=== PATIENT | female | born 1975 | race African-American/Black ===

== ENCOUNTER 2023-07-02 09:47 | Observation (INO) ==
--- NOTE | 2023-07-02 10:20 | Emergency Department Note ---
History of Present Illness General Chief complaint: Referred by Doctor Stated complaint: left foot infection, meds not helping Time Seen by Provider: 07/02/23 10:01 History of Present Illness Maximum Pain Intensity: 6 This is a 47-year-old female that presents to the emergency department via private vehicle with complaints of "left foot infection". Patient has for the past 1.5 months she has been experiencing left foot pain. Patient has a history of what is believed to be underlying psoriasis which she notes was diagnosed via biopsy. She notes an ongoing integument change to the left medial foot in different areas of the lower extremities. She notes that the areas become itchy at times and she will scratch the areas and they will become open wounds. She states that she has noted progressive pain and edema of the left foot and left lower extremity. She states that she was seen here in the emergency department on the of this month, just a few days ago and was prescribed cephalexin as well as Bactrim. Patient states that despite taking these medications as prescribed her symptoms continue to worsen. The patient denies any history of similar. The patient does note associated chills. No fever. Patient states that she reached out to her PCP today and was recommended to go to the emergency department for further evaluation and management. Current pain 6/10. Per review of the EMR the patient did have x-rays performed on 06/29/2023 as well as a venous Doppler study of the left lower extremity. Left foot at that time was essentially negative for acute findings. No evidence for acute osteomyelitis. Doppler study of the left lower extremity was essentially negative. There was a prominent left inguinal lymph node noted. Home Medications Medication Instructions Recorded Confirmed Type cephalexin 500 mg capsule 500 mg PO TID 10 days #30 caps 06/29/23 07/02/23 Rx cyanocobalamin (vitamin B-12) 1,000 mcg PO DAILY 06/29/23 07/02/23 History 1,000 mcg tablet (Vitamin B-12) dextroamphetamine-amphetamine 10 10 mg PO DAILY PRN HIGH STRESS DAYS 06/29/23 07/02/23 History mg tablet (Adderall) sulfamethoxazole 800 1 tab PO BID 10 days #20 tabs 06/29/23 07/02/23 Rx mg-trimethoprim 160 mg tablet (Bactrim DS) Allergies Allergy/AdvReac Type Severity Reaction Status Date / Time Penicillins Allergy Intermediate Hives Verified 07/02/23 11:59 Past Med/Surg History Medical History (Updated 07/02/23 @ 17:03 by Alberto Llanos PA-C) Iron deficiency anemia Surgical History No significant past surgical history Social History Smoking Status: Never smoker Feels Safe at Home: Yes Review of Systems A total of 10 systems reviewed and were otherwise negative Physical Exam Vital Signs Vital Signs - 24 hr 07/02/23 09:51 07/02/23 12:18 Temperature 37.0 C Temperature Source Oral Pulse Rate 89 Pulse Rate [Right Finger] 82 Pulse Rhythm Regular Pulse Strength Normal Respiratory Rate 20 18 Respiratory Effort / Characteristics Non-Labored Spontaneous Non-Labored Respiratory Depth Normal Normal Respiratory Pattern Regular Blood Pressure [Right Arm] 147/85 H Blood Pressure Mean [Right Arm] 105 Blood Pressure Position Sitting Blood Pressure Position [Right Arm] Lying Pulse Oximetry 97 93 Oxygen Delivery Method Room Air Room Air Sepsis Recent Fever Within 48 Hours No Sepsis New/Unexplained Change in Mental Status No Sepsis Action Taken by Nursing No Action Required VITAL SIGNS - Vital signs and nursing notes were reviewed. Stable and afebrile. GENERAL - 47-year-old female appearing her stated age who is in no acute distress. Communicates well with provider and answers questions appropriately. SKIN -several chronic, thickened integument with dark discoloration overlying the left medial foot. There is erythema tracking throughout the left foot and into the tip/fib region. There is diffuse circumferential edema throughout the left foot and left tib/fib area. HEAD - NC/AT. EYES - Sclera anicteric. EARS - No deformities of external structures noted on gross examination bilaterally. NOSE - Midline and without cyanosis. No epistaxis or purulent drainage noted. MOUTH/OROPHARYNX - Without perioral cyanosis. NECK - No nuchal rigidity. LUNGS - CTA CARDIAC - RRR EXTREMITIES - No clubbing or peripheral cyanosis. No crepitus or fluctuance left lower extremity appropriately warm and well-perfused. No deficits. Skin as above. NEUROLOGIC - Cranial nerves grossly intact. PSYCH - A&O. Pt is very pleasant and interacts well with examiner. Course Administered Medications Discontinued Medications Cefepime HCl 2,000 mg/ Syringe 20 mls @ 5 mls/min IV NOW STA; Protocol Stop: 07/02/23 12:31 Last Admin: 07/02/23 12:47 Dose: 5 mls/min Documented By: MIRANDA Vancomycin HCl 1,750 mg/ (Sodium Chloride) 535 mls @ 200 mls/hr IV NOW ONE Stop: 07/02/23 16:10 Last Admin: 07/02/23 14:40 Dose: Not Given Documented By: MIRANDA Ketorolac Tromethamine (Ketorolac Tromethamine 15 Mg/Ml Vial) 10 mg IV NOW ONE Stop: 07/02/23 12:08 Last Admin: 07/02/23 12:19 Dose: 10 mg Documented By: MIRANDA Medical Decision Making Laboratory Data 07/02/23 11:32 07/02/23 11:32 Lab Results 07/02/23 Range/Units 11:32 WBC 11.81 H (4.8-10.8) K/ul RBC 3.71 L (4.20-5.40) M/uL Hgb 8.1 L (12.0-16.0) g/dl Hct 26.8 L (37.0-47.0) % MCV 72.2 L (80.0-100.0) fL MCH 21.8 L (25.0-34.0) pg MCHC 30.2 L (32.0-36.0) g/dL RDW Std Deviation 47.4 H (36.4-46.3) fL RDW Coeff of Clarence 18.4 H (11.5-14.5) % Plt Count 646 H (130-400) K/uL MPV 8.7 L (9.4-12.4) fL Immature Gran % (Auto) 0.3 % Neut % (Auto) 69.2 % Lymph % (Auto) 23.5 % Mitchell % (Auto) 4.3 % Eos % (Auto) 2.4 % Baso % (Auto) 0.3 % Neut # (Auto) 8.17 H (1.40-6.50) K/uL Lymph # (Auto) 2.77 (1.20-3.40) K/uL Mitchell # (Auto) 0.51 (0.11-0.59) K/uL Eos # (Auto) 0.28 (0.00-0.50) K/uL Baso # (Auto) 0.04 (0.00-0.20) K/uL Immature Gran # (Auto) 0.04 (0.01-0.20) K/uL Absolute Nucleated RBC 0.18 H (0.00-0.12) K/uL Nucleated RBC % (auto) 1.5 % ESR > 130 H (0-20) mm/hr PT 9.4 (9.0-12.0) Seconds INR 0.9 (0.9-1.1) APTT 25 (21-31) Seconds PTT Ratio 0.9 Sodium 131 L (136-145) mmol/L Potassium 3.8 (3.5-5.1) mmol/L Chloride 101 (98-107) mmol/L Carbon Dioxide 25 (21-32) mmol/L Anion Gap 5 (3-11) BUN 8 (6-23) mg/dl Creatinine 0.59 L (0.6-1.2) mg/dl Est Cr Clr Drug Dosing Not Reportable Est GFR ( Amer) 127.4 ml/min Est GFR (Non-Af Amer) 109.9 ml/min BUN/Creatinine Ratio 13.6 (10-20) Glucose 89 (70-99(Fasting)) mg/dl Lactate 0.8 (0.4-2.0) mmol/L Uric Acid 2.5 L (2.6-7.2) mg/dl Calcium 9.2 (8.6-10.3) mg/dl Total Bilirubin 0.2 (0.2-1.0) mg/dl AST 12 L (13-39) U/L ALT 6 L (7-52) U/L Alkaline Phosphatase 98 (34-104) U/L C-Reactive Protein 13.68 H (0-0.5) mg/dl Total Protein 8.6 H (6.0-8.3) gm/dl Albumin 4.1 (3.4-5.0) gm/dl Globulin 4.5 H (2.5-4.0) gm/dl Albumin/Globulin Ratio 0.9 (0.9-2) Procalcitonin 0.09 (0-0.5) ng/ml HCG, Qual Negative (Negative) Imaging Data Radiologist's Impression: Foot X-Ray 07/02/23 09:54 XR foot LT min 3V routine HISTORY: 47 years-old Female known infection, painful chronic left foot pain COMPARISON: 06/29/2023 TECHNIQUE: 3 views of the left foot FINDINGS: No acute fracture identified within the left foot. No erosive changes are identified to suggest acute osteomyelitis. Mild diffuse soft tissue swelling. There is mild osteoarthritis of the first metatarsophalangeal joint with slight hallux valgus and first metatarsal head bunion. IMPRESSION: Soft tissue swelling without acute osseous abnormality ACT 112: Negative or not required by law. The above report was generated using voice recognition software. It may contain grammatical, syntax or spelling errors. Electronically signed by: Elder aT M.D. 07/02/2023 11:51 AM Tibia/Fibula X-Ray 07/02/23 10:20 XR tibia fibula LT 2V CLINICAL HISTORY: L foot and l leg pain TECHNIQUE: 2 radiographic views of the left leg were obtained. Comparison: None available at the time of this dictation. FINDINGS: There is no evidence of an acute fracture. Joint spaces are well-preserved. Soft tissue swelling is seen. IMPRESSION: Soft tissue swelling is seen without evidence of acute bony injury. ACT 112: Negative or not required by law. Electronically signed by: Rigo Frazier M.D. 07/02/2023 10:42 AM MDM Narrative Patient was seen and evaluated as above in the B pod waiting room pending formal room availability noting period of high volume and acuity in the emergency department. Patient presents to us today for assessment of ongoing left lower extremity pain, edema and erythema. The patient does have asymmetric soft tissue edema of the left lower extremity compared to the right. There is erythema of the left lower extremity. Patient is currently on Keflex and Bactrim but notes continuation of pain. Review was performed of nursing notes and vital signs. I did review pertinent previous visits and patient history. After obtaining a thorough history and physical examination the above work up was performed. Options of care were discussed with the patient. IV access was established. Labs were drawn. There is leukocytosis 11.81. There is anemia with hemoglobin of 8.1 but slightly improved compared to previous. Thrombocytosis noted with platelet count of 646. There is ESR elevation at greater than 130. Mild hyponatremia 131. No evidence of kidney failure. Lactate normal. Uric acid is not elevated. No evidence of liver failure. CRP elevated at 13.68. Procalcitonin detectable 0.09 but not elevated. hCG negative. X-ray of the tibia/fib and foot were obtained. No erosive changes are seen. I do suspect cellulitis secondary to likely open wounds of the underlying skin lesions. The patient has already taken several days now of oral antibiotics at home with no improvement, rather notes worsening symptoms. At this time I do believe that IV antibiotics and inpatient management is warranted for treatment of cellulitis. Patient amenable to this plan. IV cefepime was ordered noting her ability to tolerate oral cephalexin. Case discussed with the hospitalist service. Please refer to further documentation regarding her stay. In addition to IV cefepime I did order the patient IV Toradol for pain. In the evaluation and treatment of this patient the following differential diagnoses were entertained: Cellulitis, osteomyelitis, abscess, DVT, necrotizing fasciitis, among others Impression & Plan Cellulitis of left lower extremity Discharge Plan Visit Data Chief Complaint: Referred by Doctor Stated Complaint: left foot infection, meds not helping ED Provider: Dwight Brandt ED Midlevel Provider: Alberto Llanos Discharge Problem: Cellulitis of left lower extremity Patient Disposition: Home - Self-Care Condition: Good Discharge Instructions Interventions: ED Discharge Assessment Last Done: 07/02/23 13:46
--- NOTE | 2023-07-02 10:43 | XRay Report ---
XR tibia fibula LT 2V CLINICAL HISTORY: L foot and l leg pain TECHNIQUE: 2 radiographic views of the left leg were obtained. Comparison: None available at the time of this dictation. FINDINGS: There is no evidence of an acute fracture. Joint spaces are well-preserved. Soft tissue swelling is s een. IMPRESSION: Soft tissue swelling is seen without evidence of acute bony injury. ACT 112: Negative or not required by law. Electronically signed by: Rigo Frazier M.D. 07/02/2023 10:42 AM
[2023-07-02 11:52] LABS: Basophils # (auto) 0.04 K/uL (0.00-0.20); Basophils % (auto) 0.3 %; Eosinophils # (auto) 0.28 K/uL (0.00-0.50); Eosinophils % (auto) 2.4 %; Hematocrit (blood only) 26.8 % (37.0-47.0); Hemoglobin 8.1 g/dl (12.0-16.0); Immature Granulocytes # (auto) 0.04 K/uL (0.01-0.20); Immature Granulocytes % (auto) 0.3 %; Lymphocytes # (auto) 2.77 K/uL (1.20-3.40); Lymphocytes % (auto) 23.5 %; Mean Corpuscular Hemoglobin 21.8 pg (25.0-34.0); Mean Corpuscular Hgb Conc 30.2 g/dL (32.0-36.0); Mean Corpuscular Volume 72.2 fL (80.0-100.0); Mean Platelet Volume 8.7 fL (9.4-12.4); Monocytes # (auto) 0.51 K/uL (0.11-0.59); Monocytes % (auto) 4.3 %; Neutrophils # (auto) 8.17 K/uL (1.40-6.50); Neutrophils % (auto) 69.2 %; Nucleated RBC # (auto) 0.18 K/uL (0.00-0.12); Nucleated RBC % (auto) 1.5 %; Platelet Count 646 K/uL (130-400); RDW Coefficient of Variation 18.4 % (11.5-14.5); RDW Standard Deviation 47.4 fL (36.4-46.3); Red Blood Count 3.71 M/uL (4.20-5.40); White Blood Count 11.81 K/ul (4.8-10.8)
--- NOTE | 2023-07-02 11:52 | XRay Report ---
XR foot LT min 3V routine HISTORY: 47 years-old Female known infection, painful chronic left foot pain COMPARISON: 06/29/2023 TECHNIQUE: 3 views of the left foot FINDINGS: No acute fracture identified within the left foot. No erosive changes are identified to suggest acute osteomyelitis. Mild diffuse soft tissue swelling. There is mild osteoarthritis of the first metatars ophalangeal joint with slight hallux valgus and first metatarsal head bunion. IMPRESSION: Soft tissue swelling without acute osseous abnormality ACT 112: Negative or not required by law. The above report was generated using voice recognition software. It may contain grammatical, syntax o r spelling errors. Electronically signed by: Elder Ta M.D. 07/02/2023 11:51 AM
[2023-07-02] MEDS ORDERED: KETOROLAC TROMETHAMINE 15 MG/ML VIAL IV ONE (12:07)
[2023-07-02 12:08] LABS: Alanine Aminotransferase 6 U/L (7-52); Albumin Globulin Ratio 0.9 (0.9-2); Albumin Level 4.1 gm/dl (3.4-5.0); Alkaline Phosphatase 98 U/L (34-104); Anion Gap 5 (3-11); Aspartate Aminotransferase 12 U/L (13-39); BUN Creatinine Ratio 13.6 (10-20); Bilirubin,Total 0.2 mg/dl (0.2-1.0); Blood Urea Nitrogen 8 mg/dl (6-23); C Reactive Protein 13.68 mg/dl (0-0.5); Calcium 9.2 mg/dl (8.6-10.3); Carbon Dioxide 25 mmol/L (21-32); Chloride 101 mmol/L (98-107); Est GFR (African American) 127.4 ml/min; Est GFR (Non-African American) 109.9 ml/min; Globulin 4.5 gm/dl (2.5-4.0); Glucose 89 mg/dl (70-99(Fasting)); Potassium 3.8 mmol/L (3.5-5.1); Sodium 131 mmol/L (136-145); Total Protein 8.6 gm/dl (6.0-8.3); Uric Acid 2.5 mg/dl (2.6-7.2)
[2023-07-02 12:09] LABS: Pregnancy Test, Serum Negative (Negative)
[2023-07-02 12:24] LABS: Procalcitonin 0.09 ng/ml (0-0.5)
[2023-07-02 12:25] LABS: INR 0.9 (0.9-1.1); Partial Thromboplastin Ratio 0.9; Partial Thromboplastin Time 25 Seconds (21-31); Prothrombin Time 9.4 Seconds (9.0-12.0)
[2023-07-02] MEDS ORDERED: CEFEPIME 2,000 MG in SYRINGE 0 ML IV STA (12:28)
--- NOTE | 2023-07-02 12:52 | History & Physical Report ---
Date of Service July 02, 2023 Assessment & Plan (1) Cellulitis of foot: Plan: Right leg from foot to knee Failed outpatient treatment with Keflex and Bactrim Start vancomycin + cefepime Follow up blood cultures (2) Tinea pedis: Plan: Rash on leg has previously been labeled psoriasis previous although lc be more fungal given lack of response to steroids and distribution Patient will try to obtain prior biopsy results and whether LIVIA prep ever done Stop steroid cream and start clotrimazole 1% BID on left leg only to leave right leg if needs repeat biopsy/LIVIA prep Consider LIVIA prep if not previously performed and consider oral therapy if creams not effective and LIVIA confirms fungal infection (3) Anemia: Plan: Known iron deficiency anemia - PCP planning on EGD/colonoscopy as outpatient but has good reason with known heavy periods PCP also planning on IV iron which sounds sensible given degree of anemia and need for prior blood transfusions 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 however to deal with the underlying problem Suspect her leg cramps at night are alsoa result of iron deficiency Generalized fatigue and poor exercise tolerance likely at least somewhat caused by anemia Paramjit defer further workup since this is a known diagnosis and would avoid IV iron in setting of current infection Plan VTE prophylaxis - low risk Diet - regular Disposition - observation to [facility] Admission and Anticipated Discharge Date Admission Date: July 02, 2023 History of Present Illness Chief Complaint: Left leg swelling Primary Care Provider: Stevie Soriano DO Selin Dumont is a 47-year-old female who presents to the ER with left leg infection. She was seen in the emergency room 3 days ago and started on Bactrim and Keflex. First noticed erythema and swelling approximately a week ago. She was seen in the ER 3 days ago and given Bactrim and Keflex which she reports taking. However despite this has not helped. No fever or chills. Infection appears to start from a rash on her foot. She reports being diagnosed with psoriasis for the last 6-12 months. Her PCP did a biopsy although this was inconclusive and the diagnosis is just based on appearance. She has no other lesions elsewhere in particular never had lesions on her elbows or knees. It is intensely itchy and she scratches often. She uses triamcinolone cream 0.1% on the rash without it helping. No joint aches. She was also noticed to be anemia in the ER. She denies any chest pain, dizziness or shortness of breath but she does have generalized fatigue. This is a known diagnosis and she gets B112 shots every other week with her PCP planning on setting up intravenous iron. She had EGD/colonoscopy ordered but has not had this arranged yet however suspected to be from her heavy periods which she has had her whole life with prior endometrial ablation and known fibroids. Initially periods were improving but now worse over the last 3 years and she hasn't been back to her concrete laborer. Allergies Allergy/AdvReac Type Severity Reaction Status Date / Time Penicillins Allergy Intermediate Hives Verified 07/02/23 11:59 Home Medications Medication Instructions Recorded Confirmed Type cephalexin 500 mg capsule 500 mg PO TID 10 days #30 caps 06/29/23 07/02/23 Rx cyanocobalamin (vitamin B-12) 1,000 mcg PO DAILY 06/29/23 07/02/23 History 1,000 mcg tablet (Vitamin B-12) dextroamphetamine-amphetamine 10 10 mg PO DAILY PRN HIGH STRESS DAYS 06/29/23 07/02/23 History mg tablet (Adderall) sulfamethoxazole 800 1 tab PO BID 10 days #20 tabs 06/29/23 07/02/23 Rx mg-trimethoprim 160 mg tablet (Bactrim DS) Past Med/Surg History Medical History (Updated 07/02/23 @ 17:03 by Alberto Llanos PA-C) Iron deficiency anemia Surgical History No significant past surgical history Social History Smoking Status: Never smoker Hx Alcohol Use: No Hx Substance Use: No Preferred Language: Sami Communication Ability: Effective 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 Beliefs That Will Affect Care: None Current Living Situation: Spouse and Family Other Information That Helps Us Care for You: No Feels Safe at Home: Yes Safety Concerns: Feels Safe At This Time Assistive Devices: Contacts Review of Systems 2 Review of Systems: All systems reviewed & are unremarkable except as noted in HPI & below Physical Exam 2 Physical Exam: Constitutional: WD/WN, vitals as above Respiratory: normal respiratory effort, lungs clear to auscultation Cardiovascular: RRR, no murmur, no edema Gastrointestinal (Abdomen): normal bowel sounds, soft, nontender, no hepatosplenomegaly Skin: scaly hard plaque rash on both legs as can be seen in pictures as above without surrounding erythema and swelling up to her knee on right leg Results & Data Results & Data Vital Signs (Past 12 Hours) Vital Signs Temp Pulse Pulse Resp BP Pulse Ox O2 Del Method 07/02/23 12:18 82 18 147/85 H 93 Room Air 07/02/23 09:51 37.0 C 89 20 97 Room Air Laboratory Results Abnormal lab results 07/02/23 Range/Units 11:32 WBC 11.81 H (4.8-10.8) K/ul RBC 3.71 L (4.20-5.40) M/uL Hgb 8.1 L (12.0-16.0) g/dl Hct 26.8 L (37.0-47.0) % MCV 72.2 L (80.0-100.0) fL MCH 21.8 L (25.0-34.0) pg MCHC 30.2 L (32.0-36.0) g/dL RDW Std Deviation 47.4 H (36.4-46.3) fL RDW Coeff of Clarence 18.4 H (11.5-14.5) % Plt Count 646 H (130-400) K/uL MPV 8.7 L (9.4-12.4) fL Neut # (Auto) 8.17 H (1.40-6.50) K/uL Absolute Nucleated RBC 0.18 H (0.00-0.12) K/uL ESR > 130 H (0-20) mm/hr Sodium 131 L (136-145) mmol/L Creatinine 0.59 L (0.6-1.2) mg/dl Uric Acid 2.5 L (2.6-7.2) mg/dl AST 12 L (13-39) U/L ALT 6 L (7-52) U/L C-Reactive Protein 13.68 H (0-0.5) mg/dl Total Protein 8.6 H (6.0-8.3) gm/dl Globulin 4.5 H (2.5-4.0) gm/dl Diagnostic Findings XR tibia fibula LT 2V CLINICAL HISTORY: L foot and l leg pain TECHNIQUE: 2 radiographic views of the left leg were obtained. Comparison: None available at the time of this dictation. FINDINGS: There is no evidence of an acute fracture. Joint spaces are well-preserved. Soft tissue swelling is seen. IMPRESSION: Soft tissue swelling is seen without evidence of acute bony injury. XR foot LT min 3V routine HISTORY: 47 years-old Female known infection, painful chronic left foot pain COMPARISON: 06/29/2023 TECHNIQUE: 3 views of the left foot FINDINGS: No acute fracture identified within the left foot. No erosive changes are identified to suggest acute osteomyelitis. Mild diffuse soft tissue swelling. There is mild osteoarthritis of the first metatarsophalangeal joint with slight hallux valgus and first metatarsal head bunion. IMPRESSION: Soft tissue swelling without acute osseous abnormality Medications Administered ER medications given: Toradol 10 mg IV Cefepime 2000 mg IV Code Status & VTE Plan Code Status Full VTE Prophylaxis Plan VTE Prophylaxis will be ordered: No PG Care Time/CCT Total # of Minutes Spent Total Time Spent: 80 Total Time Spent with Patient: Total time spent is greater than 50% in coordination of care (as documented) at patient's floor/unit and/or counseling patient: Coding Level of Care Code 46526 INT INP/OBS CARE 3/75MIN Diagnoses Cellulitis of foot L03.119 Tinea pedis B35.3 Anemia D64.9
[2023-07-02] MEDS ORDERED: VANCOMYCIN CONSULT ACTIVE PRN ×2 (13:05→17:48)
[2023-07-02] MEDS ORDERED: VANCOMYCIN HCL 1,750 MG in SODIUM CHLORIDE 0.9% 500 ML IV ONE (13:30)
--- NOTE | 2023-07-02 13:56 | Pharmacy Report ---
Pharmacy PK ABX Note - Date of Service July 02, 2023 - Assessment and Plan Assessment 47 year old F receiving vancomycin/cefepime for treatment of cellulitis that failed outpatient treatment with cephalexin + bactrim. Pertinent microbiologic data includes: Blood cultures pending. Plan Vancomycin * Loading dose: 1750 mg IV x 1 * Maintenance dose: 1250 mg IV every 8 hours * Regimen is predicted to achieve target AUC/MARIAM of 400-600 mg/L.hr (first 9 do ses) * Random level to be ordered Pharmacy will continue to follow and will adjust dose/frequency as necessary. Thank you. Pharmacy has transitioned to AUC monitoring for vancomycin. AUC/MARIAM is the preferred PK/PD target and is associated with decreased risk of nephrotoxicity compared to traditional trough targets.
[2023-07-02] MEDS ORDERED: KETOROLAC TROMETHAMINE 15 MG/ML VIAL IV PRN (14:22)
[2023-07-02] MEDS ORDERED: VANCOMYCIN HCL 1,750 MG in SODIUM CHLORIDE 0.9% 500 ML IV STA (18:10)
[2023-07-02] MEDS: ACETAMINOPHEN 325 MG TAB PO PRN (19:43)
[2023-07-02] MEDS: CEFEPIME 2,000 MG in SYRINGE 0 ML IV SCH (22:19)
[2023-07-02] MEDS: CLOTRIMAZOLE 1% CR 15 GM TUBE EXT SCH (22:20)
[2023-07-03] MEDS ORDERED: VANCOMYCIN HCL 1,000 MG in SODIUM CHLORIDE 0.9% 250 ML IV SCH (04:00)
[2023-07-03] MEDS: CEFEPIME 2,000 MG in SYRINGE 0 ML IV SCH ×3 (05:14→20:42)
--- NOTE | 2023-07-03 06:43 | Communication Note ---
Date of Service: July 02, 2023 Patient confirmed no LIVIA prep performed by her PCP. Skin scraping sent for LIVIA prep.
[2023-07-03 07:12] LABS: Basophils # (auto) 0.02 K/uL (0.00-0.20); Basophils % (auto) 0.3 %; Eosinophils # (auto) 0.31 K/uL (0.00-0.50); Eosinophils % (auto) 4.9 %; Hematocrit (blood only) 24.4 % (37.0-47.0); Hemoglobin 7.5 g/dl (12.0-16.0); Immature Granulocytes # (auto) 0.01 K/uL (0.01-0.20); Immature Granulocytes % (auto) 0.2 %; Lymphocytes # (auto) 1.29 K/uL (1.20-3.40); Lymphocytes % (auto) 20.2 %; Mean Corpuscular Hemoglobin 21.7 pg (25.0-34.0); Mean Corpuscular Hgb Conc 30.7 g/dL (32.0-36.0); Mean Corpuscular Volume 70.5 fL (80.0-100.0); Mean Platelet Volume 8.7 fL (9.4-12.4); Monocytes # (auto) 0.36 K/uL (0.11-0.59); Monocytes % (auto) 5.6 %; Neutrophils # (auto) 4.39 K/uL (1.40-6.50); Neutrophils % (auto) 68.8 %; Nucleated RBC # (auto) 0.23 K/uL (0.00-0.12); Nucleated RBC % (auto) 3.6 %; Platelet Count 653 K/uL (130-400); RDW Coefficient of Variation 18.4 % (11.5-14.5); RDW Standard Deviation 45.9 fL (36.4-46.3); Red Blood Count 3.46 M/uL (4.20-5.40); White Blood Count 6.38 K/ul (4.8-10.8)
[2023-07-03 07:33] LABS: BUN Creatinine Ratio 24.5 (10-20); Calcium 8.7 mg/dl (8.6-10.3); Creatinine Clr Calc Pharmacy 146.6 ml/min; Est GFR (Non-African American) 113.9 ml/min; Potassium 4.7 mmol/L (3.5-5.1)
[2023-07-03 08:03] LABS: Howell-Jolly Bodies Occasional; Hypochromasia Present; Microcytosis Present; Polychromasia 2+; Target Cells 2+
--- NOTE | 2023-07-03 08:43 | Hospitalist Progress Note ---
Date of Service July 03, 2023 Assessment & Plan (1) Cellulitis of foot: Plan: LEFT (not right) leg from foot to knee, started apparently from rash w/ supposed hx psorasis using steroid creams Given Keflex/Bactrim in ER 3 days prior, spread up from foot to her knee. Venous US @ that time NEGATIVE for acute DVT Procal was 0.09. Lacitc 0.8 on admission. ESR >120, CRP 13.6 however see below w/ significant anemia at baseline (7.7 in ER on admission) Foot/tibia/fibia w/ soft tissue swelling without evidence for acute bony injury Placed on Vanco, Cefepime --> continued WBC improved/normalized, 11.8k--> 6.3k Blood cultures pending, NGTD Afebrile Significant edema/swelling on exam/pain (increased edema to foot-- had sweatpants w/ elastic bands-- RN to provide paper scrub pants/hopefully family able to bring additional clothes if needed) Elevation, pain control Monitor erythema Pain control -- Tylenol, adding oxycodone prn as pain uncontrolled Check CK, Venous Doppler in meantime to ensure no development of DVT Of note, know known hx DM on admission but patient prior on insulin. A1c checked given Glu 153 on AM labs and 7.1. 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[employer]) No LIVIA prep by PCP, skin scraping sent for LIVIA prep on admission -- f/u when able Stopped steroid cream, started clotrimazole 1% BID to LLE for now ?underlying guttate psoriasis given round papular appearance of lesions to LLE Will ask CM navigator to arrange for local dermatology if able to be arranged sooner as was working on getting in near home in [place] (3) Anemia: Plan: Known iron deficiency anemia - PCP planning on EGD/colonoscopy as outpatient but has good reason with known heavy periods PCP also planning on IV iron which sounds sensible given degree of anemia and need for prior blood transfusions Encouraged patient to see her nutrition and dietetics instructor again however to deal with the underlying problem Suspect her leg cramps at night are alsoa result of iron deficiency Generalized fatigue and poor exercise tolerance likely at least somewhat caused by anemia Will defer further workup since this is a known diagnosis and would avoid IV iron in setting of current infection [place] carlyley bodies on CBC, ?nonfunctioning spleen. No hx sickle cell noted by patient 07/03 Prior US doppler noting L inguinal lymphadenopathy. ?2nd infection however should have f/u [employer] [employer] Did report heavy periods about every month lasting about 6-8 days, utilizing 2 tampons/maxi pad at a time. Can have to change as freq as 10min when first starting. Hx ablation at least >3 years ago for fibroid bleeding. No hx of uterine cancer or bleeding in urine/stool No heavy NSAID use, however uses some OTC med from [facility] for headache. Asked to have take pick for further eval. ?Excedrin vs other Suspect her headaches from significant anemia Checked iron panels given MCV level 70.5 given reports of B12 w/ PCP q2wks (however hasn't gotten in a while) - Iron 23, TIBC 334, unsaturated IBC 311, trans % sat 7, ferritin 19.2 Discussed w/ supervising provider and will order IV Venofer while inpatient. BCx remain NGTD/afebrile. Suspect CRP/ESR elevated Suspect her restless legs also from low ferritin (only 19.2 in setting of acute infection). Suspect CRP/ESR 2nd to severe anemia Folate low normal. No hx of sickle cell reported by patient or inflammatory bowel disease Added peripheral smear/TSH Pepcid IV BID for reflux/epigastric discomfort CBC in AM, fecal occult for completeness Plan Ambulation encouraged, Venous Doppler ordered to ensure no DVT given increased swelling/also checking CK Continued inpatient stay on IV abx Will ask nurse navigator to arrange for local derm if able to arrange sooner Admission and Anticipated Discharge Date Admission Date: July 02, 2023 Subjective Eval this afternoon, pain not controlled, will add oxy. Heavy periods, lasts about 6-7 days, heavy for first 3-4 days and utilizes two tampons w maxipad at times and at start can have to change her tampon after 10- 20minutes. Had ablation in past, at least >3 years ago. Will need f/u. Did have some reflux this morning, will order pepcid IV. Reports good sleep but still wakes up feeling tired. No unexplained weight loss/night sweats. Has been in area/not traveled home. Leg w/ lesions which were itching. Could have had portal of entry. --> possible local f/u with derm, will discuss w/ navigator. No blood in stool/urine reported but discussed checking. Used to be on insulin in the past. A1c checked and elevated but in setting of anemia. Discussed will likely provide IV iron replacement but wanting to make sure blood cultures negative at present. Supposed to get B12 injections [id number] but suspect Does have hx headaches, no heavy NSAID use w/ ibuprofen/Aleve/Motrin reported but stated gets headaches about q2d and takes something OTC from [employer] store. Asked her to have take a picture. Also asking for paper scrubs as sweatpants w/ elastic bottoms causing worsened edema to her foot Will repeat Doppler to ensure no DVT. Leg to be elevated. Will also check CK for eval to ensure no underlying rhabdo contributing. No hx sickle cell, inflammatory bowel disease or hx uterine cancer reported. Questions/concerns addressed at this time. Physical Exam Physical Exam: General: 47yo female sitting up in bed, NAD but uncomfortable appearing with movements to her RLE, fatigued appearing Head atraumatic, normocephalic, trachea midline resp: even/unlabored but diminished in the bases, no w/c/r, on room air cv: RRR, slight systolic murmur (?anemia), LLE>RLE edema, pulses palpable but slightly diminished, +erythema, +tenderness, multiple scaly, annular lesions to her legs (see admission photo) w/ edema to her knee no active draining lesions significant scaling to her foot, primarily medially gi: +bs, slightly distended, nontender (does have some epigastric fullness however) gu: no casanova MSK/neuro: no focal deficits, no slurred speech, answering questions appropriately Psych:AOx3, cooperative but fatigued appearing Results & Data Results & Data Vital Signs (Past 12 Hours) Vital Signs Temp Pulse Resp BP Pulse Ox O2 Del Method 07/02/23 21:03 36.6 C 88 16 138/77 99 Room Air Laboratory Results 07/03/23 07/03/23 07/03/23 Range/Units 11:58 06:35 06:35 WBC 6.38 (4.8-10.8) K/ul RBC 3.46 L (4.20-5.40) M/uL Hgb 7.5 L (12.0-16.0) g/dl Hct 24.4 L (37.0-47.0) % MCV 70.5 L (80.0-100.0) fL MCH 21.7 L (25.0-34.0) pg MCHC 30.7 L (32.0-36.0) g/dL RDW Std Deviation 45.9 (36.4-46.3) fL RDW Coeff of Clarence 18.4 H (11.5-14.5) % Plt Count 653 H (130-400) K/uL MPV 8.7 L (9.4-12.4) fL Immature Gran % (Auto) 0.2 % Neut % (Auto) 68.8 % Lymph % (Auto) 20.2 % [place] % (Auto) 5.6 % Eos % (Auto) 4.9 % Baso % (Auto) 0.3 % Neut # (Auto) 4.39 (1.40-6.50) K/uL Lymph # (Auto) 1.29 (1.20-3.40) K/uL [place] # (Auto) 0.36 (0.11-0.59) K/uL Eos # (Auto) 0.31 (0.00-0.50) K/uL Baso # (Auto) 0.02 (0.00-0.20) K/uL Immature Gran # (Auto) 0.01 (0.01-0.20) K/uL Absolute Nucleated RBC 0.23 H (0.00-0.12) K/uL Nucleated RBC % (auto) 3.6 % Polychromasia 2+ Hypochromasia Present Microcytosis Present Target Cells 2+ [place] Bodies Occasional Peripher Smr Path Cons Cancelled Pending Sodium 134 L (136-145) mmol/L Potassium 4.7 D (3.5-5.1) mmol/L Chloride 107 (98-107) mmol/L Carbon Dioxide 22 (21-32) mmol/L Anion Gap 5 (3-11) BUN 13 (6-23) mg/dl Creatinine 0.53 L (0.6-1.2) mg/dl Est Cr Clr Drug Dosing 146.6 ml/min Est GFR ( Amer) 132.0 ml/min Est GFR (Non-Af Amer) 113.9 ml/min BUN/Creatinine Ratio 24.5 H (10-20) Glucose 153 H (70-99(Fasting)) mg/dl POC Glucose 116 H (70-99) mg/dl Estimat Average Glucose 157 mg/dl Hemoglobin A1c 7.1 H (4.5-5.6) % Calcium 8.7 (8.6-10.3) mg/dl Magnesium 2.2 (1.7-2.4) mg/dl Iron 23 L (35-150) mcg/dl TIBC 334 (250-450) mcg/dl Unsaturated IBC 311 (155-355) mcg/dl Transferrin % Sat 7 L (15-50) % Ferritin 19.2 (8-388) ng/ml Total Creatine Kinase 28 (26-192) U/L Folate 6.48 (>5.38) ng/ml TSH 0.794 (0.300-4.500) uIu/ml Diagnostic Findings Foot X-Ray 07/02/23 09:54 XR foot LT min 3V routine HISTORY: 47 years-old Female known infection, painful chronic left foot pain COMPARISON: 06/29/2023 TECHNIQUE: 3 views of the left foot FINDINGS: No acute fracture identified within the left foot. No erosive changes are identified to suggest acute osteomyelitis. Mild diffuse soft tissue swelling. There is mild osteoarthritis of the first metatarsophalangeal joint with slight hallux valgus and first metatarsal head bunion. IMPRESSION: Soft tissue swelling without acute osseous abnormality ACT 112: Negative or not required by law. The above report was generated using voice recognition software. It may contain grammatical, syntax or spelling errors. Electronically signed by: Elder Ta M.D. 07/02/2023 11:51 AM Tibia/Fibula X-Ray 07/02/23 10:20 XR tibia fibula LT 2V CLINICAL HISTORY: L foot and l leg pain TECHNIQUE: 2 radiographic views of the left leg were obtained. Comparison: None available at the time of this dictation. FINDINGS: There is no evidence of an acute fracture. Joint spaces are well-preserved. Soft tissue swelling is seen. IMPRESSION: Soft tissue swelling is seen without evidence of acute bony injury. ACT 112: Negative or not required by law. Electronically signed by: Rigo Frazier M.D. 07/02/2023 10:42 AM PG Care Time/CCT Total # of Minutes Spent Total Time Spent with Patient: Total time spent is greater than 50% in coordination of care (as documented) at patient's floor/unit and/or counseling patient: Coding Level of Care Code 19663 SUB INP/OBS CARE 3/50MIN Diagnoses Cellulitis of foot L03.119 Tinea pedis B35.3 Anemia D64.9
[2023-07-03] MEDS: CLOTRIMAZOLE 1% CR 15 GM TUBE EXT SCH ×2 (09:07→20:43)
[2023-07-03 09:26] LABS: Estimated Average Glucose 157 mg/dl; Hemoglobin A1C 7.1 % (4.5-5.6)
[2023-07-03 09:30] LABS: Magnesium 2.2 mg/dl (1.7-2.4)
[2023-07-03 09:44] LABS: Thyroid Stimulating Hormone 0.794 uIu/ml (0.300-4.500)
[2023-07-03 09:47] LABS: Ferritin 19.2 ng/ml (8-388)
--- NOTE | 2023-07-03 10:47 | Pharmacy Report ---
Pharmacy PK ABX Note - Date of Service July 03, 2023 - Assessment and Plan Assessment 47 year old F receiving vancomycin and cefepime for treatment of cellulitis. Failed outpatient Keflex and Bactrim. Blood cultures pending. Renal function stable. Day #2 of antimicrobial therapy. Plan Vancomycin * Loading dose: 1750 mg IV x 1 * Maintenance dose: 1250 mg IV every 8 hours * Regimen is predicted to achieve target AUC/MARIAM of 400-600 mg/L.hr * Trough tomorrow AM Pharmacy will continue to follow and will adjust dose/frequency as necessary. Thank you. Pharmacy has transitioned to AUC monitoring for vancomycin. AUC/MARIAM is the preferred PK/PD target and is associated with decreased risk of nephrotoxicity compared to traditional trough targets.
[2023-07-03] MEDS ORDERED: CARBOHYDRATES FOR HYPOGLYCEMIA PO PRN (11:40)
[2023-07-03] MEDS ORDERED: DEXTROSE 50% 50 ML SYRINGE IV PRN (11:40)
[2023-07-03] MEDS ORDERED: GLUCOSE 10 TAB/TUBE PO PRN (11:40)
[2023-07-03] MEDS ORDERED: GLUCOSE 40% GEL 15 GM TUBE PO PRN (11:40)
[2023-07-03] MEDS ORDERED: GLUCAGON FOR INJ 1 MG VIAL SQ PRN (11:40)
[2023-07-03] MEDS ORDERED: FAMOTIDINE 20 MG in SYRINGE 3 ML IV ONE (12:03)
[2023-07-03] MEDS: VANCOMYCIN HCL 1,250 MG in SODIUM CHLORIDE 0.9% 250 ML IV SCH ×2 (13:49→20:42)
[2023-07-03] MEDS: oxyCODONE HCL IR 5 MG TAB (IMMEDIATE RELEASE) PO PRN ×2 (13:49→20:51)
[2023-07-03] MEDS: IRON SUCROSE 300 MG in SODIUM CHLORIDE 0.9% 250 ML IV SCH (16:09)
[2023-07-03] MEDS: INSULIN ASPART PER UNIT CHARGE SC SCH ×2 (17:35→21:30)
[2023-07-03] MEDS ORDERED: diphenhydrAMINE Capsule 25 MG CAP PO PRN (17:56)
[2023-07-03] MEDS ORDERED: diphenhydrAMINE Capsule 25 MG CAP ONE (18:01)
--- NOTE | 2023-07-03 18:34 | Ultrasound Report ---
LEFT LOWER EXTREMITY VENOUS DOPPLER HISTORY: R/O DVT INC LEG SWELLING COMPARISON STUDY: Left leg venous Doppler 06/29/2023. FINDINGS: There is normal compressibility, flow, and augmentation within the left lower extremity bibi p venous system. Enlarged left inguinal lymph node again noted measuring 52 x 30 x 14 mm. IMPRESSION: No DVT within the left lower extremity. Left inguinal lymphadenopathy again noted. ACT 112: Negative or not required by law. Electronically signed by: Jamie Rodriguez M.D. 07/03/2023 6:31 PM
[2023-07-03] MEDS: FAMOTIDINE 20 MG in SYRINGE 3 ML IV SCH (20:42)
[2023-07-04] MEDS ORDERED: VANCOMYCIN LEVEL ONE (03:00)
[2023-07-04 04:25] LABS: BUN Creatinine Ratio 23.2 (10-20); C Reactive Protein 3.61 mg/dl (0-0.5); Calcium 8.9 mg/dl (8.6-10.3); Creatinine Clr Calc Pharmacy 138.7 ml/min; Est GFR (African American) 129.6 ml/min; Est GFR (Non-African American) 111.8 ml/min; Magnesium 1.9 mg/dl (1.7-2.4); Potassium 4.1 mmol/L (3.5-5.1)
[2023-07-04] MEDS: VANCOMYCIN HCL 1,250 MG in SODIUM CHLORIDE 0.9% 250 ML IV SCH ×3 (04:37→19:40)
[2023-07-04] MEDS: CEFEPIME 2,000 MG in SYRINGE 0 ML IV SCH ×3 (04:38→19:40)
[2023-07-04 04:58] LABS: Appearance Urine Slightly Cloudy (Clear); Bilirubin Urine Negative (Negative); Blood Urine 1+ (Negative); Color Urine Yellow; Glucose Urine UA Trace (Negative); Ketones Urine Negative (Negative); Leukocyte Esterase Urine 1+ (Negative); Nitrite Urine Negative (Negative); Protein Urine Negative (Negative); Urobilinogen Urine Negative (Negative)
[2023-07-04 05:00] LABS: Bacteria Urine 1+ (Negative); Epithelial Cell Urine >30 /lpf (0-5); RBC Urine 0-4 /hpf (0-4)
--- NOTE | 2023-07-04 08:08 | Hospitalist Progress Note ---
Date of Service July 04, 2023 Assessment & Plan (1) Cellulitis of foot: Plan: LEFT (not right) leg from foot to knee, started apparently from rash w/ supposed hx psorasis using steroid creams Given Keflex/Bactrim in ER 3 days prior, spread up from foot to her knee. Venous US @ that time NEGATIVE for acute DVT Procal was 0.09. Lacitc 0.8 on admission. ESR >120, CRP 13.6 however see below w/ significant anemia at baseline (7.7 in ER on admission) Foot/tibia/fibia w/ soft tissue swelling without evidence for acute bony injury Vanco, Cefepime WBC normalized, afebrile Blood cultures NGTD LIVIA prep/fungal cx pending. Has reported improvement in raised plaques. 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 ?from infection, underlying psoriasis, anemia. SHould have close f/u PCP A1c 7.1, BSG AC/HS added but BSGs have been well controlled. 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 Will need f/u derm at dc (from [facility], but ok w/ local f/u) (3) Anemia: Plan: Known iron deficiency anemia - PCP planning on EGD/colonoscopy as outpatient but has good reason with known heavy periods PCP also planning on IV iron which sounds sensible given degree of anemia and need for prior blood transfusions Encouraged patient to see her nutrition coordinator again however to deal with the underlying problem Suspect her leg cramps at night are alsoa result of iron deficiency Generalized fatigue and poor exercise tolerance likely at least somewhat caused by anemia Will defer further workup since this is a known diagnosis and would avoid IV iron in setting of current infection [place] carlyley bodies on CBC, ?nonfunctioning spleen. No hx sickle cell noted by patient 07/04 Prior US doppler noting L inguinal lymphadenopathy. 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 Repeat doppler NEGATIVE for DVT Did report heavy periods about every month lasting about 6-8 days, utilizing 2 tampons/maxi pad at a time. Can have to change as freq as 10min when first starting. Hx ablation at least >3 years ago for fibroid bleeding. No hx of uterine cancer or bleeding in urine/stool No heavy NSAID use, however uses some OTC med from [employer] [employer] for headache. Asked to have take pick for further eval. ?Excedrin vs other Suspect her headaches from significant anemia, improved w/ venofer replacement. No evidence for PMR/GCA Iron panel checked given microcytosis, B12 injection reports (however hasn't gotten in a while) --> Iron 23, TIBC 334, unsaturated IBC 311, trans % sat 7, ferritin 19.2 Venofer IV while inpatient ordered. Hgb stable compared to prior, no bleeding reported at present. FOCB ordered. --> Of note, patient reports did have scope in past but was for pancreatic mass. Will need f/u endoscopies. Had some reflux 07/03 and placed on pepcid IV BID and no longer having any symptoms. Lipase added to AM labs. ?DM w/ pancreatic lesion is concerning. No abdominal pain on exam but does have some distension. LFTs w/o elevation on admission Folate low normal TSH wnl Peripheral smear pending, fecal occult for completeness CBC in AM and GI f/u outpt Plan continued inpatient stay, hopeful dc tomorrow on PO abx as long as continued improvement. Should likely cover for pseudomonas given Bactrim/keflex and DM. Admission and Anticipated Discharge Date Admission Date: July 02, 2023 Subjective Eval this morning, was hoping to be able to go today but monitoring through tomorrow. Pain much improved/controlled with ordered meds. Got good sleep, no further headaches today. Restless leg symptoms. Foot still swollen but erythema/warmth much improved. Afebrile. Will hopefully be able to dc tomorrow. Will send pics to derm for review/working on arranging local follow up. Notes she did have c-scope in the past, when asked why she notes for a panc reatic mass. No further epigastric discomfort since placing on pepcid and this will be continued. Questions/concerns addressed at this time Physical Exam Physical Exam: General: 47yo female sitting up in bed, NAD , much more comfortable appearing head atraumatic, normocephalic, mmm, trachea midline Resp; even, unlabored, slightly diminished in bases no obvious w/c/r, on room air CV: RRR, faint systolic murmur, no r/g, RLE>LLE edema, decreased edema/redness, pulses palpable GI: +BS, +distension but soft/NT : no casanova +palpable L inguinal lymph node, nontender, fixed MSK/Neuro/skin: no temporal artery tenderness, no slurred speech, answering questions appropriately, strength equal Skin: bilateral LE w/ plaques likely psoriasis, decreased raised scaly lesions to both legs (decreased raised lesions to LLE per patient since fungal cream), decreased erythema/warmth, decreased tenderness. MUCH improved compared to yesterday. Foot still with 1-2+ pedal edema Results & Data Results & Data Vital Signs (Past 12 Hours) Vital Signs Temp Pulse Resp BP Pulse Ox O2 Del Method 07/04/23 08:02 36.8 C 89 18 150/89 H 93 Room Air 07/03/23 21:30 Room Air 07/03/23 21:08 36.7 C 87 16 152/87 H 100 Room Air Laboratory Results 07/04/23 07/04/23 07/04/23 Range/Units 07:58 04:50 03:43 Peripher Smr Path Cons ESR 119 H (0-20) mm/hr Sodium 134 L (136-145) mmol/L Potassium 4.1 (3.5-5.1) mmol/L Chloride 104 (98-107) mmol/L Carbon Dioxide 24 (21-32) mmol/L Anion Gap 6 (3-11) BUN 13 (6-23) mg/dl Creatinine 0.56 L (0.6-1.2) mg/dl Est Cr Clr Drug Dosing 138.7 ml/min Est GFR ( Amer) 129.6 ml/min Est GFR (Non-Af Amer) 111.8 ml/min BUN/Creatinine Ratio 23.2 H (10-20) Glucose 163 H (70-99(Fasting)) mg/dl POC Glucose Pending (70-99) mg/dl Estimat Average Glucose mg/dl Hemoglobin A1c (4.5-5.6) % Calcium 8.9 (8.6-10.3) mg/dl Magnesium 1.9 (1.7-2.4) mg/dl Iron (35-150) mcg/dl TIBC (250-450) mcg/dl Unsaturated IBC (155-355) mcg/dl Transferrin % Sat (15-50) % Ferritin (8-388) ng/ml Total Creatine Kinase (26-192) U/L C-Reactive Protein 3.61 H (0-0.5) mg/dl Folate (>5.38) ng/ml TSH (0.300-4.500) uIu/ml Urine Color Yellow Urine Appearance Slightly Cloudy (Clear) Urine pH 6.0 (4.5-7.5) Ur Specific [place] 1.020 (1.000-1.030) Urine Protein Negative (Negative) Urine Glucose (UA) Trace H (Negative) Urine Ketones Negative (Negative) Urine Blood 1+ H (Negative) Urine Nitrite Negative (Negative) Urine Bilirubin Negative (Negative) Urine Urobilinogen Negative (Negative) Ur Leukocyte Esterase 1+ H (Negative) Urine RBC 0-4 (0-4) /hpf Urine WBC 10-30 H (0-5) /hpf Ur Epithelial Cells >30 H (0-5) /lpf Urine Bacteria 1+ H (Negative) Random Vancomycin 11.5 (10-20) mcg/ml 07/03/23 07/03/23 07/03/23 Range/Units 20:56 17:13 11:58 Peripher Smr Path Cons ESR (0-20) mm/hr Sodium (136-145) mmol/L Potassium (3.5-5.1) mmol/L Chloride (98-107) mmol/L Carbon Dioxide (21-32) mmol/L Anion Gap (3-11) BUN (6-23) mg/dl Creatinine (0.6-1.2) mg/dl Est Cr Clr Drug Dosing ml/min Est GFR ( Amer) ml/min Est GFR (Non-Af Amer) ml/min BUN/Creatinine Ratio (10-20) Glucose (70-99(Fasting)) mg/dl POC Glucose 134 H 180 H 116 H (70-99) mg/dl Estimat Average Glucose mg/dl Hemoglobin A1c (4.5-5.6) % Calcium (8.6-10.3) mg/dl Magnesium (1.7-2.4) mg/dl Iron (35-150) mcg/dl TIBC (250-450) mcg/dl Unsaturated IBC (155-355) mcg/dl Transferrin % Sat (15-50) % Ferritin (8-388) ng/ml Total Creatine Kinase (26-192) U/L C-Reactive Protein (0-0.5) mg/dl Folate (>5.38) ng/ml TSH (0.300-4.500) uIu/ml Urine Color Urine Appearance (Clear) Urine pH (4.5-7.5) Ur Specific [place] (1.000-1.030) Urine Protein (Negative) Urine Glucose (UA) (Negative) Urine Ketones (Negative) Urine Blood (Negative) Urine Nitrite (Negative) Urine Bilirubin (Negative) Urine Urobilinogen (Negative) Ur Leukocyte Esterase (Negative) Urine RBC (0-4) /hpf Urine WBC (0-5) /hpf Ur Epithelial Cells (0-5) /lpf Urine Bacteria (Negative) Random Vancomycin (10-20) mcg/ml 07/03/23 07/03/23 Range/Units 06:35 06:35 Peripher Smr Path Cons Cancelled Pending ESR (0-20) mm/hr Sodium (136-145) mmol/L Potassium (3.5-5.1) mmol/L Chloride (98-107) mmol/L Carbon Dioxide (21-32) mmol/L Anion Gap (3-11) BUN (6-23) mg/dl Creatinine (0.6-1.2) mg/dl Est Cr Clr Drug Dosing ml/min Est GFR ( Amer) ml/min Est GFR (Non-Af Amer) ml/min BUN/Creatinine Ratio (10-20) Glucose (70-99(Fasting)) mg/dl POC Glucose (70-99) mg/dl Estimat Average Glucose 157 mg/dl Hemoglobin A1c 7.1 H (4.5-5.6) % Calcium (8.6-10.3) mg/dl Magnesium 2.2 (1.7-2.4) mg/dl Iron 23 L (35-150) mcg/dl TIBC 334 (250-450) mcg/dl Unsaturated IBC 311 (155-355) mcg/dl Transferrin % Sat 7 L (15-50) % Ferritin 19.2 (8-388) ng/ml Total Creatine Kinase 28 (26-192) U/L C-Reactive Protein (0-0.5) mg/dl Folate 6.48 (>5.38) ng/ml TSH 0.794 (0.300-4.500) uIu/ml Urine Color Urine Appearance (Clear) Urine pH (4.5-7.5) Ur Specific [place] (1.000-1.030) Urine Protein (Negative) Urine Glucose (UA) (Negative) Urine Ketones (Negative) Urine Blood (Negative) Urine Nitrite (Negative) Urine Bilirubin (Negative) Urine Urobilinogen (Negative) Ur Leukocyte Esterase (Negative) Urine RBC (0-4) /hpf Urine WBC (0-5) /hpf Ur Epithelial Cells (0-5) /lpf Urine Bacteria (Negative) Random Vancomycin (10-20) mcg/ml Diagnostic Findings Venous Doppler Study 07/03/23 15:19 LEFT LOWER EXTREMITY VENOUS DOPPLER HISTORY: R/O DVT INC LEG SWELLING COMPARISON STUDY: Left leg venous Doppler 06/29/2023. FINDINGS: There is normal compressibility, flow, and augmentation within the left lower extremity deep venous system. Enlarged left inguinal lymph node again noted measuring 52 x 30 x 14 mm. IMPRESSION: No DVT within the left lower extremity. Left inguinal lymphadenopathy again noted. ACT 112: Negative or not required by law. Electronically signed by: Jamie Rodriguez M.D. 07/03/2023 6:31 PM PG Care Time/CCT Total # of Minutes Spent Total Time Spent with Patient: Total time spent is greater than 50% in coordination of care (as documented) at patient's floor/unit and/or counseling patient: Coding Level of Care Code 81429 SUB INP/OBS CARE 3/50MIN Diagnoses Cellulitis of foot L03.119 Tinea pedis B35.3 Anemia D64.9
[2023-07-04 08:39] LABS: Basophils # (auto) 0.04 K/uL (0.00-0.20); Basophils % (auto) 0.5 %; Eosinophils # (auto) 0.34 K/uL (0.00-0.50); Eosinophils % (auto) 4.6 %; Hematocrit (blood only) 25.2 % (37.0-47.0); Hemoglobin 7.5 g/dl (12.0-16.0); Immature Granulocytes # (auto) 0.02 K/uL (0.01-0.20); Immature Granulocytes % (auto) 0.3 %; Lymphocytes # (auto) 2.39 K/uL (1.20-3.40); Lymphocytes % (auto) 32.5 %; Mean Corpuscular Hemoglobin 21.5 pg (25.0-34.0); Mean Corpuscular Hgb Conc 29.8 g/dL (32.0-36.0); Mean Corpuscular Volume 72.2 fL (80.0-100.0); Mean Platelet Volume 8.5 fL (9.4-12.4); Monocytes # (auto) 0.37 K/uL (0.11-0.59); Neutrophils # (auto) 4.19 K/uL (1.40-6.50); Neutrophils % (auto) 57.1 %; Nucleated RBC # (auto) 0.23 K/uL (0.00-0.12); Nucleated RBC % (auto) 3.1 %; Platelet Count 651 K/uL (130-400); RDW Coefficient of Variation 18.6 % (11.5-14.5); RDW Standard Deviation 48.1 fL (36.4-46.3); Red Blood Count 3.49 M/uL (4.20-5.40); White Blood Count 7.35 K/ul (4.8-10.8)
[2023-07-04] MEDS: INSULIN ASPART PER UNIT CHARGE SC SCH ×4 (08:56→22:02)
[2023-07-04] MEDS: FAMOTIDINE 20 MG in SYRINGE 3 ML IV SCH ×2 (08:59→19:40)
[2023-07-04] MEDS: CLOTRIMAZOLE 1% CR 15 GM TUBE EXT SCH ×2 (09:00→19:41)
[2023-07-04] MEDS: IRON SUCROSE 300 MG in SODIUM CHLORIDE 0.9% 250 ML IV SCH (09:00)
[2023-07-04 09:02] LABS: Hypochromasia Present; Microcytosis Present; Polychromasia 1+; Target Cells 2+
--- NOTE | 2023-07-04 09:29 | Pharmacy Report ---
Pharmacy PK ABX Note - Date of Service July 04, 2023 - Assessment and Plan Assessment 47 year old F receiving vancomycin and cefepime for treatment of cellulitis. Failed outpatient Keflex and Bactrim. Blood cultures preliminarily with no growth. Renal function stable. Day #3 of antimicrobial therapy. Plan Vancomycin * Current regimen: 1250 mg IV every 8 hours * Random level obtained 07/04/23 resulted as 11.5 mcg/mL. This is predicted to achieve target AUC/MARIAM of 400-600 mg/L.hr * Predicted AUC at steady state: 518 mg/L.hr * Continue 1250 mg IV every 8 hours * Will repeat level in the next 48-72 hours if therapy is continued and/or change in patient clinical status Pharmacy will continue to follow and will adjust dose/frequency as necessary. Thank you. Pharmacy has transitioned to AUC monitoring for vancomycin. AUC/MARIAM is the p referred PK/PD target and is associated with decreased risk of nephrotoxicity compared to traditional trough targets.
[2023-07-04] MEDS ORDERED: CLOBETASOL PROPIONATE 0.05% OINT 15 GM TUBE EXT SCH (21:00)
[2023-07-05] MEDS: CEFEPIME 2,000 MG in SYRINGE 0 ML IV SCH ×2 (04:24→13:41)
[2023-07-05] MEDS: VANCOMYCIN HCL 1,250 MG in SODIUM CHLORIDE 0.9% 250 ML IV SCH ×2 (04:24→13:42)
[2023-07-05] MEDS: ACETAMINOPHEN 325 MG TAB PO PRN (04:25)
[2023-07-05 07:34] LABS: Hematocrit (blood only) 23.2 % (37.0-47.0); Hemoglobin 7.2 g/dl (12.0-16.0); Mean Corpuscular Hemoglobin 21.8 pg (25.0-34.0); Mean Corpuscular Volume 70.1 fL (80.0-100.0); Mean Platelet Volume 8.8 fL (9.4-12.4); Nucleated RBC # (auto) 0.45 K/uL (0.00-0.12); Nucleated RBC % (auto) 6.4 %; Platelet Count 656 K/uL (130-400); RDW Coefficient of Variation 18.4 % (11.5-14.5); Red Blood Count 3.31 M/uL (4.20-5.40); Reticulocyte % 1.96 % (0.50-2.00); White Blood Count 6.99 K/ul (4.8-10.8)
[2023-07-05 07:53] LABS: BUN Creatinine Ratio 26.2 (10-20); C Reactive Protein 1.93 mg/dl (0-0.5); Calcium 9.2 mg/dl (8.6-10.3); Est GFR (African American) 142.5 ml/min; Est GFR (Non-African American) 122.9 ml/min; Potassium 3.9 mmol/L (3.5-5.1)
[2023-07-05] MEDS ORDERED: amLODIPine BESYLATE 5 MG TAB PO ONE (08:13)
--- NOTE | 2023-07-05 08:24 | Hospitalist Progress Note ---
Date of Service July 05, 2023 Assessment & Plan (1) Cellulitis of foot: Plan: LEFT (not right) leg from foot to knee, started apparently from rash w/ supposed hx psorasis using steroid creams Given Keflex/Bactrim in ER 3 days prior, spread up from foot to her knee. Venous US @ that time NEGATIVE for acute DVT Procal was 0.09. Lacitc 0.8 on admission. ESR >120, CRP 13.6 however see below w/ significant anemia at baseline (7.7 in ER on admission) Foot/tibia/fibia w/ soft tissue swelling without evidence for acute bony injury Vanco, Cefepime WBC normalized, afebrile Blood cultures NGTD LIVIA prep/fungal cx pending. Has reported improvement in raised plaques. Sent pictures to Dr Grajeda (Aaron to assist w/ arranging f/u) --> given improvement w/ antifungal, to continue clotrimazole BID x 2 weeks then clobestol 0.05% ointment BID thereafter should be provided IMPROVEMENT ON EXAM 07/04 Pain control, benadryl available for itching Venous Doppler NEGATIVE (noting lymph node, palpable on exam but possibly reactive but will need f/u ARMATURE TESTER for heavy bleeding as below) CK not elevated ESR/CRP trending down on repeat. ?from infection, underlying psoriasis, anemia. SHould have close f/u PCP A1c 7.1, BSG AC/HS added but BSGs have been well controlled. 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 Will need f/u derm at dc (from [facility], but ok w/ local f/u) (3) Anemia: Plan: Known iron deficiency anemia - PCP planning on EGD/colonoscopy as outpatient but has good reason with known heavy periods PCP also planning on IV iron which sounds sensible given degree of anemia and need for prior blood transfusions Encouraged patient to see her director informatics again however to deal with the underlying problem Suspect her leg cramps at night are alsoa result of iron deficiency Generalized fatigue and poor exercise tolerance likely at least somewhat caused by anemia Will defer further workup since this is a known diagnosis and would avoid IV iron in setting of current infection [place] jolly bodies on CBC, ?nonfunctioning spleen. No hx sickle cell noted by patient 07/04 Prior US doppler noting L inguinal lymphadenopathy. ?2nd infection however should have f/u ARMATURE TESTER. Repeat doppler NEGATIVE for DVT Did report heavy periods about every month lasting about 6-8 days, utilizing 2 tampons/maxi pad at a time. Can have to change as freq as 10min when first starting. Hx ablation at least >3 years ago for fibroid bleeding. No hx of uterine cancer or bleeding in urine/stool No heavy NSAID use, however uses some OTC med from [facility] for headache. Asked to have take pick for further eval. ?Excedrin vs other Suspect her headaches from significant anemia, improved w/ venofer replacement. No evidence for PMR/GCA Iron panel checked given microcytosis, B12 injection reports (however hasn't gotten in a while) --> Iron 23, TIBC 334, unsaturated IBC 311, trans % sat 7, ferritin 19.2 Venofer IV while inpatient ordered. Hgb stable compared to prior, no bleeding reported at present. FOCB ordered. --> Of note, patient reports did have scope in past but was for pancreatic mass. Will need f/u endoscopies. Had some reflux 07/03 and placed on pepcid IV BID and no longer having any symptoms. Lipase added to AM labs. ?DM w/ pancreatic lesion is concerning. No abdominal pain on exam but does have some distension. LFTs w/o elevation on admission Folate low normal TSH wnl Peripheral smear pending, fecal occult for completeness CBC in AM and GI f/u outpt (4) HTN (hypertension), benign: Plan continued inpatient stay, hopeful dc tomorrow on PO abx as long as continued improvement. Should likely cover for pseudomonas given Bactrim/keflex and DM. Admission and Anticipated Discharge Date Admission Date: July 04, 2023 Results & Data Results & Data Vital Signs (Past 12 Hours) Vital Signs Temp Pulse Resp BP BP Pulse Ox O2 Del Method 07/05/23 08:00 87 18 162/94 H 94 Room Air 07/05/23 07:08 36.4 C L 81 16 149/80 H 97 Room Air 07/05/23 04:19 87 18 148/80 H 98 Room Air 07/04/23 21:30 148/88 H Laboratory Results 07/05/23 07:17 07/05/23 07:17 PG Care Time/CCT Total # of Minutes Spent Total Time Spent with Patient: Total time spent is greater than 50% in coordination of care (as documented) at patient's floor/unit and/or counseling patient: Coding Diagnoses Cellulitis of foot L03.119 Tinea pedis B35.3 Anemia D64.9 HTN (hypertension), benign I10
[2023-07-05] MEDS ORDERED: ALUMINUM/MAGNESIUM SUSP 30 ML UDC PO STA (08:35)
[2023-07-05] MEDS: INSULIN ASPART PER UNIT CHARGE SC SCH ×2 (08:52→13:39)
[2023-07-05] MEDS: CLOTRIMAZOLE 1% CR 15 GM TUBE EXT SCH (08:54)
[2023-07-05] MEDS: FAMOTIDINE 20 MG in SYRINGE 3 ML IV SCH (08:56)
[2023-07-05] MEDS: IRON SUCROSE 300 MG in SODIUM CHLORIDE 0.9% 250 ML IV SCH (08:56)
[2023-07-05 09:01] LABS: Troponin I High Sensitivity 2.8 pg/ml (0-14)
--- NOTE | 2023-07-05 11:44 | Electrocardiogram Report ---
Test Reason : Blood Pressure : / mmHG Vent. Rate : 083 BPM Atrial Rate : 083 BPM P-R Int : 140 ms QRS Dur : 082 ms QT Int : 390 ms P-R-T Axes : 052 029 041 degrees QTc Int : 458 ms Normal sinus rhythm Normal ECG No previous ECGs available Confirmed by Raul Meza ([id number]) on 07/05/2023 11:43:33 AM Referred By: REFERRED SELF Confirmed By:Raul Meza
[2023-07-05] MEDS ORDERED: POTASSIUM CHLORIDE CRTAB 20 MEQ TABCR PO STA (12:28)
[2023-07-05] MEDS ORDERED: CEFDINIR 300 MG CAP PO STA (13:13)
--- NOTE | 2023-07-05 13:22 | Discharge Summary ---
Date of Service July 05, 2023 Admission HPI Per Admitting Provider Selin Dumont is a 47-year-old female who presents to the ER with left leg infection. She was seen in the emergency room 3 days ago and started on Bactrim and Keflex. First noticed erythema and swelling approximately a week ago. She was seen in the ER 3 days ago and given Bactrim and Keflex which she reports taking. However despite this has not helped. No fever or chills. Infection appears to start from a rash on her foot. She reports being diagnosed with psoriasis for the last 6-12 months. Her PCP did a biopsy although this was inconclusive and the diagnosis is just based on appearance. She has no other le sions elsewhere in particular never had lesions on her elbows or knees. It is intensely itchy and she scratches often. She uses triamcinolone cream 0.1% on the rash without it helping. No joint aches. She was also noticed to be anemia in the ER. She denies any chest pain, dizziness or shortness of breath but she does have generalized fatigue. This is a known diagnosis and she gets B112 shots every other week with her PCP planning on setting up intravenous iron. She had EGD/colonoscopy ordered but has not had this arranged yet however suspected to be from her heavy periods which she has had her whole life with prior endometrial ablation and known fibroids. 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 Admission Exam Per Admitting Provider Physical Exam: Constitutional: WD/WN, vitals as above Respiratory: normal respiratory effort, lungs clear to auscultation Cardiovascular: RRR, no murmur, no edema Gastrointestinal (Abdomen): normal bowel sounds, soft, nontender, no hepatosplenomegaly Skin: scaly hard plaque rash on both legs as can be seen in pictures as above without surrounding erythema and swelling up to her knee on right leg Principal Diagnosis RLE Cellulitis, failure of outpatient antibiotics Discharge Exam General: 47yo female sitting up in bed, NAD , much more comfortable appearing head atraumatic, normocephalic, mmm, trachea midline Resp; even, unlabored, slightly diminished in bases no obvious w/c/r, on room air CV: RRR, faint systolic murmur, no r/g, RLE>LLE edema, decreased edema/redness, pulses palpable GI: +BS, +distension but soft/NT : no casanova +palpable L inguinal lymph node, nontender, fixed MSK/Neuro/skin: no temporal artery tenderness, no slurred speech, answering questions appropriately, strength equal Skin: bilateral LE w/ plaques likely psoriasis, decreased raised scaly lesions to both legs (decreased raised lesions to LLE per patient since fungal cream), decreased erythema/warmth, decreased tenderness. MUCH improved compared to yesterday. Foot still with 1-2+ pedal edema Discharge Data Allergies Allergy/AdvReac Type Severity Reaction Status Date / Time Penicillins Allergy Intermediate Hives Verified 07/02/23 11:59 Consultations 07/02/23 12:29 ED Decision to Admit Stat 07/03/23 11:41 HIM [Consult Health Information Management] Routine 07/03/23 18:13 Consult [facility] locomotive inspector Routine Ordered Studies Foot X-Ray 07/02/23 09:54 XR foot LT min 3V routine HISTORY: 47 years-old Female known infection, painful chronic left foot pain COMPARISON: 06/29/2023 TECHNIQUE: 3 views of the left foot FINDINGS: No acute fracture identified within the left foot. No erosive changes are identified to suggest acute osteomyelitis. Mild diffuse soft tissue swelling. There is mild osteoarthritis of the first metatarsophalangeal joint with slight hallux valgus and first metatarsal head bunion. IMPRESSION: Soft tissue swelling without acute osseous abnormality ACT 112: Negative or not required by law. The above report was generated using voice recognition software. It may contain grammatical, syntax or spelling errors. Electronically signed by: Elder Ta M.D. 07/02/2023 11:51 AM Tibia/Fibula X-Ray 07/02/23 10:20 XR tibia fibula LT 2V CLINICAL HISTORY: L foot and l leg pain TECHNIQUE: 2 radiographic views of the left leg were obtained. Comparison: None available at the time of this dictation. FINDINGS: There is no evidence of an acute fracture. Joint spaces are well-preserved. Soft tissue swelling is seen. IMPRESSION: Soft tissue swelling is seen without evidence of acute bony injury. ACT 112: Negative or not required by law. Electronically signed by: Rigo Frazier M.D. 07/02/2023 10:42 AM Venous Doppler Study 07/03/23 15:19 LEFT LOWER EXTREMITY VENOUS DOPPLER HISTORY: R/O DVT INC LEG SWELLING COMPARISON STUDY: Left leg venous Doppler 06/29/2023. FINDINGS: There is normal compressibility, flow, and augmentation within the left lower extremity deep venous system. Enlarged left inguinal lymph node again noted measuring 52 x 30 x 14 mm. IMPRESSION: No DVT within the left lower extremity. Left inguinal lymphadenopathy again noted. ACT 112: Negative or not required by law. Electronically signed by: Jamie Rodriguez M.D. 07/03/2023 6:31 PM Diabetes Follow up Diabetes Follow-up Needed for Newly Diagnosed Diabetes Hospital Course (1) Cellulitis of foot: LEFT (not right) leg from foot to knee, started apparently from rash w/ supposed hx psorasis using steroid creams Given Keflex/Bactrim in ER 3 days prior, spread up from foot to her knee. Venous US @ that time NEGATIVE for acute DVT Procal was 0.09. Lacitc 0.8 on admission. ESR >120, CRP 13.6 however see below w/ significant anemia at baseline (7.7 in ER on admission) Foot/tibia/fibia w/ soft tissue swelling without evidence for acute bony injury Vanco, Cefepime WBC normalized, afebrile Blood cultures NGTD LIVIA prep/fungal cx pending. Has reported improvement in raised plaques. Sent pictures to Dr Grajeda (Aaron to assist w/ arranging f/u) --> given reported improvement w/ antifungal, to continue clotrimazole BID x 2 weeks then clobestol 0.05% ointment BID thereafter should be provided Pain control, benadryl available for itching Venous Doppler NEGATIVE (noting lymph node, palpable on exam but possibly reactive but will need f/u MASTER WELDER for heavy bleeding as below) CK not elevated ESR/CRP trending down on repeat. ?from infection, underlying psoriasis, anemia. Should have close f/u PCP ESR 119 on repeat (slow to normalize) however CRP to 1.93 A1c 7.1, BSG AC/HS, ISS added however patient had been declining inslin. POC 145 prior to dc and DM educator saw/provided glucometer and metformin 500mg ER HS started at dc and discussed patient to have f/u with PCP. Would like good BSG control to prevent worsened infection 07/05 - WBC wnl, afebrile. Decision to give 40mg PO lasix to assist w/ swelling x 1 and continue 20mg PO x 3 days and then as needed. BP elevated w/ 169/80 and discussed amlodipine 5mg and monitoring BPs. Repeat labs this upcoming week. Aaron arranging derm f/u. Patient to f/u MASTER WELDER given heavy menstrual bleeding Given patient w/ DM A1c 7 and hx splenectomy, discussion w/ oncall infectious disease undertaken prior to dc given risk for encapsulated organisms and failure outpt treatment. Discussed and to check MRSA nares (patient denied hx of MRSA as well) but if +, plan linezolid but if negative plan cefdinir 300mg BID (tolerated keflex despite hx hives to PCN) and continue levaquin for gram negative coverage. Extended to 10 days given outpt failure but could be extended to 14 days. To continue elevation, pain control w/ tylenol/oxy (avoiding NSAIDs given below). TO return to ER if any fevers/worsened pain/redness or swelling. updated at tx regarding plan. Metformin 500mg HS started, seen by DM educator and glucometer provided. Testing strips/etc sent at discharge. Nursing to provide crutches to prevent weight bearing to extremity given pain (2) Anemia: Known iron deficiency anemia - PCP planning on EGD/colonoscopy as outpatient but has good reason with known heavy periods PCP was also planning on IV iron which sounds sensible given degree of anemia and need for prior blood transfusions Encouraged patient to see her test car driver again however to deal with the underlying problem Suspect her leg cramps at night are alsoa result of iron deficiency Generalized fatigue and poor exercise tolerance likely at least somewhat caused by anemia Will defer further workup since this is a known diagnosis and would avoid IV iron in setting of current infection Juanlida yan bodies on CBC, ?nonfunctioning spleen. No hx sickle cell noted by patient PATIENT WITHOUT SPLEEN. 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 Lipase wnl. Discussed should have outpatient follow up given such ALSO DISCUSSED PATIENT SHOULD ALERT MEDICAL PROVIDERS ABOUT NOT HAVING SPLEEN IN FUTURE INFECTIONS GIVEN RISK FOR ENCAPSULATED BACTERIA CASE DISCUSSED w/ ID and prior outpt abx/inpatient IV abx w/ improvement and MRSA swab negative and decision for levaquin 750mg daily and cefdinir to have better strep coverage 07/04 Prior US doppler noting L inguinal lymphadenopathy. ?2nd infection however should have f/u MASTER WELDER. Repeat doppler NEGATIVE for DVT Did report heavy periods about every month lasting about 6-8 days, utilizing 2 tampons/maxi pad at a time. Can have to change as freq as 10min when first starting. Hx ablation at least >3 years ago for fibroid bleeding. No hx of uterine cancer or bleeding in urine/stool No heavy NSAID use, however uses some OTC med from [employer] for headache. Asked to have take pick for further eval. ?Excedrin vs other Suspect her headaches from significant anemia, improved w/ venofer replacement. No evidence for PMR/GCA Iron panel checked given microcytosis, B12 injection reports (however hasn't gotten in a while) --> Iron 23, TIBC 334, unsaturated IBC 311, trans % sat 7, ferritin 19.2 Venofer IV while inpatient ordered. Hgb stable compared to prior, no bleeding reported at present. FOCB ordered. --> Of note, patient reports did have scope in past but was for pancreatic mass. Will need f/u endoscopies. Had some reflux 07/03 and placed on pepcid IV BID and no longer having any symptoms. Lipase added to AM labs. ?DM w/ pancreatic lesion is concerning. No abdominal pain on exam but does have some distension. LFTs w/o elevation on admission Folate low normal TSH wnl Peripheral smear pending, fecal occult for completeness CBC in AM and GI f/u outpt 07/05 - Peripheral smear noting thrombocytosis, suspect reactive in setting of infection. Of note, patient reporting asplenia 07/05 w/ her prior pancreatic surgery for removal mass at the tail of pancreas. A1c/DM as above - F/u MASTER WELDER rec'd for consideration for another ablation vs hysterectomy and f/u eval. Will need monitoring L inguinal lymph node but could be reactive from current cellulitis infection. Venous doppler NEGATIVE for DVT. no hypoxia/hypotension or pleuritic chest pain reported. - Discussed may need periodic Venofer transfusions depending on further eval/treatment fibroids w/ period. No abdominal pain reported (except some reflux which resolved w/ pepcid and can continue) and rec'd to avoid NSAIDs (she is to check her OTC headache medication from [employer] but wasn't sure what was in it). Lipase wnl. NO epigastric discomfort prior to dc on exam however if was taking OTC w/ NSAIDs I told her to be cautious w/ use given her anemia/bleeding to prevent worsening. Suspect some degree of underlying reflux, pepcid BID continued at dc (3) HTN (hypertension), benign: Suspect 2nd to pain however ongoi w/ improvement in pain and amlodipine 5mg x 1 provided and lasix for swelling as above and BP 169/80 prior to dc Discussed to continue to monitor BPs at home and f/u PCP for consideration for further BP management EKG NSR, troponin negative (4) Diabetes mellitus: Prior on insulin but hasn't required per patient but did have pancreatic mass resection as above A1c checked and 7.1, declined insulin while inpatient but was provided DM II, DM educator saw and provided glucometer. Patient agreeable to metformin 500mg HS which was started at tx and supplies to check sugars once daily were sent and she should f/u PCP. Coverage w/ abx to cover for pseudomonas/GNR as above given failure bactrim/keflex and should be covered w/ levaquin as above (5) Asplenia: noted w/ prior pancreatic surgery, likely why juan jolly bodies on CBC DIscussed with patient and at bedside 07/05 that patient should alert any/all medical providers in the future w/ infections given risk for encapsulated bacteria Case discussed w/ ID prior to dc Patient to return to ER if any worsening of cellulitis/pain/fevers. WOuld rec patient have further imaging w/ CT leg/foot if any ongoing issues given elevated ESR/CRP on admit however CRP almost normalized on repeat values and suspect from infection and anemia and is s/p Venofer x 3 as above f/u PCP, consider heme/onc if any continued thrombocytosis/issues (6) Iron deficiency: iron studies checked given MCV< 70 Iron 23, TIBC 334, unsaturated IBC 311, trans % sat 7, ferritin only 19.2 in setting of infection s/p venofer 300mg x 3 doses while inpatient suspected 2nd to heavy menses/bleeding as above. f/U MASTER WELDER Patient also to be on B12 but hasn't gotten. Rec'd continued f/u and injections w/ PCP at tx (sandor as starting back on metformin as above/can cause low B12). Folate not deficient TSH wnl Peripheral smear w/o concerns for malignancy but notes thrombocytosis. F/u PCP and can consider hematology f/u if needed Did have faint murmur on exam but no significant evidence for heart failure and can have PCP f/u. Could be from anemia. EKG/trop unremarkable (7) Tinea pedis: Rash on leg has previously been labeled psoriasis previous although may be more fungal given lack of response to steroids and distribution (of note, son yesyler for [employer]) No LIVIA prep by PCP, skin scraping sent for ILVIA prep on admission -- f/u when able Stopped steroid cream on admission, started clotrimazole 1% BID to LLE for now -- per derm, to continue x 2 weeks, then clobestol ointment BID and f/u dermatology at discharge (8) Psoriasis: significant psoriasis to her LE, primarily feet but also to her shins. See imaging on admission. Clotrimazole x2 weeks then clobestol as outlined and follow up suspect source for her cellulitis given significant itching, no active/draining lesions at present Denied any family/personal history of inflammatory bowel disease but can be linked. F/u GI for repeat scope discussed with patient given pancreatic mass in the past and underlying anemia however does have heavy menses as outlined but suspect should have repeat eval for completeness. Denied any blood in her urine/stool. Plan discharged on cefdinir 300mg BID, levaquin 750mg daily to complete 10-14 day course pending repeat evals clotrimazole cream BID x 2 weeks then clobestasol 0.05% ointment BID per dermatology and will need f/u for underlying psoriasis amlodipine 5mg PO daily for BP management, titration in f/u with PCP as needed and to monitor BPs at tx. Lasix 20mg PO x 3 days w/ additional prn as needed Patient going to be in town all week and to return of any worsening symptoms (would rec further imaging of LLE if any ongoing issues but no abscess/fluid collection on exam) and repeat labs provided for this upcoming to ensure stable/improved and no issues with renal function w/ diuretic use. Discharge Plan Discharge Items Patient Disposition: Home - Self-Care Reason For Visit: CELLULITIS, FAILURE OUTPT ABX Discharge Diagnosis: Cellulitis Condition on Discharge: Good Goals: You have been hospitalized for an acute medical problem. During your stay at [facility], we have made an effort to correct the problem that brought you to the hospital while keeping you as comfortable as possible. Medications were used to bring your condition under control and your discharge instructions will include directions for any medications you should take after l eaving the hospital. Please make sure you see your Primary Care Provider as part of your follow up plan. Activity: As commented below Activity Comment: please elevate leg as much as possible to help with swelling Non-emergency contact: Primary Care Provider and Specialist Call non-emergency contact if: you have any medication questions Follow-up/Referrals: Jaswinder Grajeda MD [Physician] - Stevie Soriano DO [Primary Care Provider] - Diet: Heart Healthy Ambulatory Orders: Basic Metabolic Panel (Routine) Timeframe: 20230708 Location: Determined by Patient Ordered By: Rea Caba Complete Blood Count with Diff (Routine) Timeframe: [id number] Location: Determined by Patient Ordered By: Rea Caba Addtl Attending Provider Instructions: You have been hospitalized for cellulitis which did not get adequately treated with oral antibiotics as an outpatient. You were covered for pseudomonas given diabetes but also other bacteria given you do not have a spleen. We utilized IV antibiotics with Vancomycin and Cefepime and are switching to LEVAQUIN 750mg ONCE DAILY (monitor for any increased heel pain/avoid heavy exercise) and CEFDINIR 300mg by mouth TWICE DAILY for another SEVEN days to complete a 10 day course. Sometimes antibiotics need to be extended to 14 days for severe infection and so I did send an additional 4 days after the 7 days in case primary care wants these extended for a 14 day course to prevent need for repeat prescription. Your inflammatory markers have improved on repeat and white count normalized. Blood cultures have been negative. You have been started on low dose metformin to help with diabetes and should have follow up with primary care. Imaging was NEGATIVE for a blood clot but noted enlarged lymph node which could be reactive from the infection and will need follow up. You should follow up with MASTER WELDER to discuss further ablation vs hysterectomy to treat ongoing heavy b leeding with periods/further evaluation. I checked your iron stores given your blood counts and they were LOW. You received IV iron while inpatient to boost stores and will need follow up with primary care if ongoing bleeding to see about transfusions vs oral iron supplementation. We started Pepcid for reflux. You should avoid any NSAIDs (ibuprofen, Aleve, Motrin) as able as they can increase bleeding. You are being continued on pepcid to help with reflux. EKG was normal and troponin was NOT elevated. You have been started on low dose amlodipine 5mg daily to help with blood pressure and should monitor your blood pressure to ensure no further treatment needed. We are sending 3 days of lasix (diuretic) 20mg by mouth once daily to help with the swelling in the leg and help with healing. We are going to have you check your labs again later this week on to ensure they are continuing to improve. I have spoken with dermatology while you have been in the hospital and they are recommending having you continue the clotrimazole cream twice daily for two weeks and THEN change to clobestiol 0.05% ointment twice a day for psoriasis and should have follow up at discharge for ongoing management/treatment. You can take zyrtec/benadryl as needed for itching. We have sent oxycodone as needed for pain control and you can use tylenol for nonsevere pain. Your A1c was 7 and will need repeated with primary care given your anemia however your blood sugars have been elevated and this could be from infection however better blood sugar control is recommended and you are being sent on metformin 500mg once daily at night and supplies to check your blood sugars and ensure staying controlled. Please follow up with primary care in the next 7-10 days to monitor your status. Please return to the ER with any fevers/chills, worsening/uncontrolled pain, shortness of breath, uncontrolled/elevated blood sugars or for any other symptoms concerning for you. It has been a pleasure being a part of the medical team providing for you while you have been in the hospital. Take care! Pending Studies at Discharge: Yes (LIVIA prep (no fungus at present), blood cultures NO GROWTH TO DATE) Stand-Alone Forms: My [facility] [employer], Smoking Cessation Medications and DC Order Prescriptions: New metformin 500 mg Tablet Extended Release 24 Hr 500 mg PO PM Qty: 30 0RF clotrimazole 1 % Cream 1 applic EXT BID 14 Days Qty: 30 0RF oxycodone 5 mg Tablet 5 mg PO Q4H PRN (Reason: pain) Qty: 14 0RF famotidine [Pepcid] 20 mg tablet 20 mg PO BID Qty: 60 0RF amlodipine 5 mg tablet 5 mg PO DAILY Qty: 30 0RF furosemide 20 mg tablet See Rx Instructions .ROUTE .COMPLEX Qty: 10 0RF Rx Instructions: take 20mg PO by mouth once daily for 3 days, then can use as needed for edema/swelling/weight gain (DME) OneTouch Verio test strips Strip See Rx Instructions .Route Qty: 50 0RF Rx Instructions: As directed (DME) lancets [OneTouch Delica Plus Lancet] 33 gauge misc See Rx Instructions .Route Qty: 100 0RF Rx Instructions: As directed clobetasol 0.05 % ointment 1 applic topical AMPM 14 Days Qty: 30 0RF levofloxacin 750 mg Tablet 750 mg PO DAILY@1700 Qty: 11 0RF cefdinir 300 mg capsule 300 mg PO BID 11 Days Qty: 22 0RF Continued dextroamphetamine-amphetamine [Adderall] 10 mg Tablet 10 mg PO DAILY PRN (Reason: HIGH STRESS DAYS) cyanocobalamin (vitamin B-12) [Vitamin B-12] 1,000 mcg Tablet 1,000 mcg PO DAILY Discontinued sulfamethoxazole-trimethoprim [Bactrim DS] 800-160 mg tablet 1 tab PO BID 10 Days Qty: 20 0RF Rx Instructions: Start Date: 06/29/23 - End Date: 07/09/23. Pt has taken 7 doses. cephalexin 500 mg capsule 500 mg PO TID 10 Days Qty: 30 0RF Rx Instructions: Start Date: 06/29/23 - End Date: 07/09/23. Pt taken 10 doses Discharge Orders: Discharge Order (Routine); Ordered 07/05/23 Ordered By: Rea Steiner/Other Patient Handouts: Diabetes: Meal Planning, Type 2 Diabetes Admission Data Admit Date/Time: 07/04/23 13:38 Attending Provider: Elizabeth Rose Admit Provider: Rudi De Souza Primary Care Provider: Stevie Soriano Other Providers: Rudi De Souza Other Interventions: Discharge Summary Assessment (RN) Last Done: 07/05/23 14:34 Coding Diagnoses Cellulitis of foot L03.119 Anemia D64.9 HTN (hypertension), benign I10 Diabetes mellitus E11.9 Asplenia Q89.01 Iron deficiency E61.1 Tinea pedis B35.3 Psoriasis L40.9
[2023-07-05] MEDS ORDERED: FUROSEMIDE 40 MG TAB PO ONE (13:31)
[2023-07-05] MEDS: FUROSEMIDE 40 MG/4 ML VIAL IV ONE ×2 (13:51→13:52)
[2023-07-05] MEDS ORDERED: levoFLOXacin 750 MG TAB PO SCH (17:00)
[2023-07-05] MEDS ORDERED: metFORMIN HCL ER 500 MG TABCR PO SCH (21:00)
== END 2023-07-05 14:30 | disposition home or self-care (01) ==
LOC: EDINP 09:47 → ED 09:47 → SUATTDRO 13:21 → 3W 13:46